=== PATIENT | female | born 1965 | race African-American/Black ===

== ENCOUNTER 2024-02-28 07:50 | Emergency (ER) | payer MEDICARE, MEDICAID ==
[~2024-02-28] VITALS: Ht 152.4 cm; Wt 91.0 kg
[2024-02-28 08:01] VITALS: O2SAT 100
[2024-02-28] MEDS: DEXAMETHASONE 4MG/ML 1ML VIAL IM ONE (11:34)
[2024-02-28] MEDS: KETOROLAC 30MG/ML VIAL IM ONE (11:35)
[2024-02-28] MEDS: LIDOCAINE 5% PATCH TOP SCH (11:35)
[2024-02-28] MEDS ORDERED: T3 PO (11:45)
[2024-02-28] MEDS ORDERED: NAP5EC MT (11:51)
[2024-02-28 12:39] VITALS: BP 159/64; PULSE 54; RESP 16; TEMP 98.7
== END 2024-02-28 12:46 | disposition home or self-care (01) ==
LOC: ER 07:50
DX: M54.16 Radiculopathy, lumbar region (principal); E11.9 Type 2 diabetes mellitus without complications; E78.00 Pure hypercholesterolemia, unspecified; I10 Essential (primary) hypertension; Z88.0 Allergy status to penicillin
CPT/HCPCS: 99285; 72131; 81025; 96372; J1100; J1885